=== PATIENT | female | born 1940 | race Caucasian/White ===

== ENCOUNTER 2017-10-28 14:37 | Emergency (ER) | payer OTHER ==
[~2017-10-28] VITALS: Ht 162.6 cm; Wt 103.2 kg
[~2017-10-28 14:37] MED LIST: ASPIR 8181 M1 PO; ASPIRIN EC325 MG PO; BENICAR HCT 201 EACH PO; BENICAR40 MG PO; BYSTOLIC10 MG PO; BYSTOLIC5 MG PO; CELECOXIB200 MG PO; Ecotrin PO; FERROUS SULFAT325 MG PO; Feosol PO; GLUCOPHAGE500 MG PO; HYDROCODON-ACE1 EAC7 PO; ICAPS LUTEIN1 TABLET PO; ICaps Multivitamin F PO; INVOKANA100 MG PO; LEVOTHYROXINE137 MCG PO; Levothroid,Synthroid PO; PAXIL10 MG PO; PAXIL20 MG PO; SENNA-TIME S T1 EACH PO; VITAMIN D2000 UNIT PO; VITAMIN E400 UNIT PO; Vicodin,Lortab 5/500 PO; Vitamin-E PO; WELCHOL625 MG PO
[2017-10-28 15:11] LABS: HEMATOCRIT 33.2 % (36.0-46.0); HEMOGLOBIN 9.8 G/DL (11.9-15.5); MCH 23.7 PG (29.0-34.0); MCHC 29.5 G/DL (30.0-36.0); MCV 80.4 FL (83-99); PLATELET COUNT 311 K/uL (156-360); RBC DIS.WIDTH-CV 19.3 % (11.8-14.6); RBC DIS.WIDTH-SD 56.1 % (39-53); RED BLOOD COUNT 4.13 M/uL (3.80-5.20); WHITE BLOOD COUNT 9.3 K/uL (4.1-10.2)
[2017-10-28 15:22] LABS: CHLORIDE 106 mEq/L (99-109); POTASSIUM 3.9 mEq/L (3.7-5.4); SODIUM 139 mEq/L (136-147)
[2017-10-28 15:25] LABS: GLUCOSE 138 mg/dL (70-99); TOTAL PROTEIN 7.4 g/dL (6.4-8.3)
[2017-10-28 15:26] LABS: TOTAL BILIRUBIN 0.4 mg/dL (0.0-1.0)
[2017-10-28 15:28] LABS: ALKALINE PHOSPHATASE 81 IU/L (3-129); CREATININE 1.1 mg/dL (0.6-1.3); GFR ESTIMATE (CALCULATED) 51 mL/min/
[2017-10-28 15:29] LABS: UREA NITROGEN (BUN) 15 mg/dL (9-23)
[2017-10-28 15:30] LABS: AST (GOT) 31 IU/L (2-34)
[2017-10-28 15:31] LABS: ALT (GPT) 30 IU/L (3-49)
[2017-10-28 17:17] LABS: LIPASE 25 U/L (1.0-51.0)
[2017-10-28 17:36] LABS: APPEARANCE CLOUDY ((CLEAR)); BILIRUBIN NEGATIVE; BLOOD NEGATIVE; COLOR YELLOW ((YELLOW)); GLUCOSE (STRIP) >=500; KETONES NEGATIVE; LEUKOCYTES TRACE; NITRITE NEGATIVE; PROTEIN (STRIP) NEGATIVE; SPECIFIC GRAVITY 1.009 (1.000-1.030); UROBILINOGEN 0.2 MG/DL (0.2-1.0)
[2017-10-28 17:44] LABS: BACTERIA RARE /HPF; EPITHELIAL CELLS 1+ /HPF; MUCUS TRACE /LPF; RED BLOOD CELLS 0-5 /HPF (0-5); UCUL ADDED? NO; WHITE BLOOD CELLS 0-5 /HPF (0-5)
[2017-10-28 20:39] VITALS: BP 143/68
== END 2017-10-28 20:40 | disposition home or self-care (01) ==
LOC: EME 14:37
DX: R10.9 Unspecified abdominal pain (principal); Z98.890 Other specified postprocedural states; K21.9 Gastro-esophageal reflux disease without esophagitis; I10 Essential (primary) hypertension; E11.9 Type 2 diabetes mellitus without complications; F41.9 Anxiety disorder, unspecified; Z85.828 Personal history of other malignant neoplasm of skin; Z79.84 Long term (current) use of oral hypoglycemic drugs; Z90.710 Acquired absence of both cervix and uterus; Z88.0 Allergy status to penicillin; Z88.1 Allergy status to other antibiotic agents; Z88.8 Allergy status to other drugs, medicaments and biological substances
CPT/HCPCS: 74177; 80053; 81003; 83605; 83690; 85027; 87040; 99281; 99285; J7030

== ENCOUNTER 2017-11-22 22:26 | Inpatient (IN) | payer OTHER ==
[~2017-11-22] VITALS: Ht 165.1 cm; Wt 93.9 kg
[~2017-11-22 22:26] MED LIST changes: +DIOVAN80 MG PO; +FEOSOL325 MG PO; +LO-DOSE ASPIRIN81 M1 PO; +SYNTHROID125 MCG PO
[2017-11-23 06:09] VITALS: BP 129/56
[2017-11-23 07:45] LABS: HEMATOCRIT 32.9 % (36.0-46.0); HEMOGLOBIN 9.4 G/DL (11.9-15.5); MCV 80.6 FL (83-99)
[2017-11-23 08:08] LABS: CHLORIDE 104 MEQ/L (99-109); GFR ESTIMATE (CALCULATED) 57 mL/min/; GLUCOSE 225 mg/dL (70-99); POTASSIUM 4.1 MEQ/L (3.7-5.4); SODIUM 137 MEQ/L (136-147); UREA NITROGEN (BUN) 15 mg/dL (9-23)
[2017-11-23 14:48] VITALS: BP 114/58
[2017-11-23 14:49] VITALS: BP 114/58
[2017-11-23 20:23] VITALS: BP 116/57
[2017-11-24] VITALS (9 sets, daily range): BP systolic 88–112; BP diastolic 39–58
[2017-11-24 04:51] LABS: HEMATOCRIT 30.6 % (36.0-46.0); HEMOGLOBIN 8.6 G/DL (11.9-15.5); MCH 23.2 PG (29.0-34.0); MCHC 28.1 G/DL (30.0-36.0); MCV 82.5 FL (83-99); PLATELET COUNT 308 K/uL (156-360); RBC DIS.WIDTH-CV 17.2 % (11.8-14.6); RED BLOOD COUNT 3.71 M/uL (3.80-5.20)
[2017-11-24 05:33] LABS: CHLORIDE 105 MEQ/L (99-109); CREATININE 1.1 MG/DL (0.6-1.3); GFR ESTIMATE (CALCULATED) 51 mL/min/; GLUCOSE 187 mg/dL (70-99); MAGNESIUM 1.7 mg/dl (1.3-2.7); PHOSPHORUS 3.1 mg/dL (2.5-4.9); SODIUM 136 MEQ/L (136-147); UREA NITROGEN (BUN) 16 mg/dL (9-23)
[2017-11-25 00:38] VITALS: BP 140/63
[2017-11-25 06:20] LABS: HEMATOCRIT 31.9 % (36.0-46.0); HEMOGLOBIN 9.2 G/DL (11.9-15.5); MCH 23.9 PG (29.0-34.0); MCHC 28.8 G/DL (30.0-36.0); MCV 82.9 FL (83-99); PLATELET COUNT 252 K/uL (156-360); RBC DIS.WIDTH-CV 17.1 % (11.8-14.6); RBC DIS.WIDTH-SD 51.1 % (39-53); RED BLOOD COUNT 3.85 M/uL (3.80-5.20); WHITE BLOOD COUNT 14.2 K/uL (4.1-10.2)
[2017-11-25 06:48] LABS: CHLORIDE 102 MEQ/L (99-109); CREATININE 1.1 MG/DL (0.6-1.3); GFR ESTIMATE (CALCULATED) 51 mL/min/; GLUCOSE 163 mg/dL (70-99); MAGNESIUM 1.7 mg/dl (1.3-2.7); PHOSPHORUS 2.7 mg/dL (2.5-4.9); POTASSIUM 4.4 MEQ/L (3.7-5.4); SODIUM 135 MEQ/L (136-147); UREA NITROGEN (BUN) 19 mg/dL (9-23)
[2017-11-25 07:30] VITALS: BP 142/67
[2017-11-25 15:30] VITALS: BP 126/60
[2017-11-25 21:26] VITALS: BP 101/56
[2017-11-25 23:37] VITALS: BP 97/56
[2017-11-26] VITALS (14 sets, daily range): BP systolic 99–148; BP diastolic 51–91
[2017-11-26 06:32] LABS: HEMATOCRIT 27.9 % (36.0-46.0); HEMOGLOBIN 7.9 G/DL (11.9-15.5); MCH 23.4 PG (29.0-34.0); MCHC 28.3 G/DL (30.0-36.0); MCV 82.8 FL (83-99); PLATELET COUNT 242 K/uL (156-360); RBC DIS.WIDTH-CV 17.2 % (11.8-14.6); RBC DIS.WIDTH-SD 50.8 % (39-53); RED BLOOD COUNT 3.37 M/uL (3.80-5.20); WHITE BLOOD COUNT 11.8 K/uL (4.1-10.2)
[2017-11-26 06:59] LABS: CHLORIDE 101 MEQ/L (99-109); CREATININE 1.3 MG/DL (0.6-1.3); GFR ESTIMATE (CALCULATED) 42 mL/min/; GLUCOSE 136 mg/dL (70-99); MAGNESIUM 1.7 mg/dl (1.3-2.7); PHOSPHORUS 2.7 mg/dL (2.5-4.9); POTASSIUM 4.1 MEQ/L (3.7-5.4); SODIUM 134 MEQ/L (136-147); UREA NITROGEN (BUN) 22 mg/dL (9-23)
[2017-11-26 15:32] LABS: HEMATOCRIT 30.2 % (36.0-46.0); MCV 82.3 FL (83-99)
[2017-11-26 21:23] LABS: HEMATOCRIT 33.6 % (36.0-46.0); HEMOGLOBIN 10.1 G/DL (11.9-15.5); MCH 24.6 PG (29.0-34.0); MCHC 30.1 G/DL (30.0-36.0); MCV 81.8 FL (83-99); NRBC (%) 0.2 /100 WBC (0-0); PLATELET COUNT 231 K/uL (156-360); RBC DIS.WIDTH-CV 17.3 % (11.8-14.6); RBC DIS.WIDTH-SD 51.4 % (39-53); WHITE BLOOD COUNT 12.4 K/uL (4.1-10.2)
[2017-11-26 21:28] LABS: RED BLOOD COUNT 4.11 M/uL (3.80-5.20)
[2017-11-26 21:43] LABS: CHLORIDE 102 MEQ/L (99-109); CREATININE 1.4 MG/DL (0.6-1.3); GFR ESTIMATE (CALCULATED) 39 mL/min/; GLUCOSE 143 mg/dL (70-99); POTASSIUM 4.3 MEQ/L (3.7-5.4); SODIUM 135 MEQ/L (136-147); UREA NITROGEN (BUN) 27 mg/dL (9-23)
[2017-11-26 22:19] LABS: HEMATOCRIT 34.4 % (36.0-46.0); HEMOGLOBIN 10.2 G/DL (11.9-15.5); MCV 81.5 FL (83-99)
[2017-11-27 03:27] VITALS: BP 139/76
[2017-11-27 05:53] LABS: HEMATOCRIT 34.1 % (36.0-46.0); HEMOGLOBIN 10.4 G/DL (11.9-15.5); MCH 24.5 PG (29.0-34.0); MCHC 30.5 G/DL (30.0-36.0); MCV 80.4 FL (83-99); PLATELET COUNT 252 K/uL (156-360); RBC DIS.WIDTH-CV 17.2 % (11.8-14.6); RBC DIS.WIDTH-SD 50.4 % (39-53); RED BLOOD COUNT 4.24 M/uL (3.80-5.20); WHITE BLOOD COUNT 12.8 K/uL (4.1-10.2)
[2017-11-27 06:25] LABS: CHLORIDE 100 MEQ/L (99-109); CREATININE 1.3 MG/DL (0.6-1.3); GFR ESTIMATE (CALCULATED) 42 mL/min/; GLUCOSE 156 mg/dL (70-99); MAGNESIUM 1.7 mg/dl (1.3-2.7); PHOSPHORUS 2.5 mg/dL (2.5-4.9); POTASSIUM 3.7 MEQ/L (3.7-5.4); SODIUM 134 MEQ/L (136-147); UREA NITROGEN (BUN) 27 mg/dL (9-23)
[2017-11-27 07:30] VITALS: BP 138/69
[2017-11-27 16:23] VITALS: BP 140/77
[2017-11-27 19:27] VITALS: BP 155/67
[2017-11-27 23:04] VITALS: BP 149/68
[2017-11-28 05:22] LABS: HEMATOCRIT 37.6 % (36.0-46.0); HEMOGLOBIN 11.2 G/DL (11.9-15.5); MCH 23.8 PG (29.0-34.0); MCHC 29.8 G/DL (30.0-36.0); MCV 79.8 FL (83-99); PLATELET COUNT 257 K/uL (156-360); RBC DIS.WIDTH-CV 17.1 % (11.8-14.6); RBC DIS.WIDTH-SD 49.7 % (39-53); RED BLOOD COUNT 4.71 M/uL (3.80-5.20); WHITE BLOOD COUNT 13.7 K/uL (4.1-10.2)
[2017-11-28 05:55] LABS: CHLORIDE 103 MEQ/L (99-109); CREATININE 1.1 MG/DL (0.6-1.3); GFR ESTIMATE (CALCULATED) 51 mL/min/; GLUCOSE 161 mg/dL (70-99); MAGNESIUM 1.6 mg/dl (1.3-2.7); PHOSPHORUS 2.3 mg/dL (2.5-4.9); POTASSIUM 3.9 MEQ/L (3.7-5.4); SODIUM 137 MEQ/L (136-147); UREA NITROGEN (BUN) 21 mg/dL (9-23)
[2017-11-28 07:12] VITALS: BP 132/66
[2017-11-28 11:32] VITALS: BP 102/55
[2017-11-28 16:16] VITALS: BP 97/56
[2017-11-28 23:02] VITALS: BP 108/50
[2017-11-29] VITALS (9 sets, daily range): BP systolic 87–134; BP diastolic 52–66
[2017-11-29 06:22] LABS: PLATELET COUNT 288 K/uL (156-360)
[2017-11-29 07:10] LABS: HEMATOCRIT 44.1 % (36.0-46.0); MCH 24.2 PG (29.0-34.0); MCHC 30.8 G/DL (30.0-36.0); MCV 78.3 FL (83-99); NRBC (%) 0.3 /100 WBC (0-0); RBC DIS.WIDTH-CV 17.7 % (11.8-14.6); RBC DIS.WIDTH-SD 49.3 % (39-53); RED BLOOD COUNT 5.63 M/uL (3.80-5.20); WHITE BLOOD COUNT 5.8 K/uL (4.1-10.2)
[2017-11-29 07:14] LABS: HEMOGLOBIN 13.6 G/DL (11.9-15.5)
[2017-11-29 07:48] LABS: CHLORIDE 102 MEQ/L (99-109); CREATININE 2.5 MG/DL (0.6-1.3); GFR ESTIMATE (CALCULATED) 20 mL/min/; GLUCOSE 152 mg/dL (70-99); MAGNESIUM 1.5 mg/dl (1.3-2.7); PHOSPHORUS 4.9 mg/dL (2.5-4.9); POTASSIUM 4.4 MEQ/L (3.7-5.4); SODIUM 134 MEQ/L (136-147); UREA NITROGEN (BUN) 35 mg/dL (9-23)
[2017-11-29 16:53] LABS: COMMENTS - BLOOD GASES A+C+; DEVICE VENT; FI02 70 %; MECHANICAL RATE 12 resp/min; MODE A/C; PEEP 5 CM/H20; SITE RR; TIDAL VOLUME 500 ML; TOTAL RESP RATE 12 resp/min
[2017-11-29 16:54] LABS: BASE EXCESS -7.1 mEq/L (-3 to +3); BICARBONATE 19.3 mEq/L (22-26); METHEMOGLOBIN 0.9 % (0-1.5); PCO2 41 mm Hg (35-45); PO2 71 mm Hg (80-100); pH 7.28 (7.35-7.45)
[2017-11-29 17:42] LABS: HEMATOCRIT 43.4 % (36.0-46.0); HEMOGLOBIN 12.9 G/DL (11.9-15.5); MCH 23.9 PG (29.0-34.0); MCHC 29.7 G/DL (30.0-36.0); MCV 80.5 FL (83-99); RBC DIS.WIDTH-CV 18.3 % (11.8-14.6); RBC DIS.WIDTH-SD 52.5 % (39-53); RED BLOOD COUNT 5.39 M/uL (3.80-5.20); WHITE BLOOD COUNT 5.6 K/uL (4.1-10.2)
[2017-11-29 18:03] LABS: CHLORIDE 104 MEQ/L (99-109); CREATININE 2.3 MG/DL (0.6-1.3); GFR ESTIMATE (CALCULATED) 22 mL/min/; GLUCOSE 106 mg/dL (70-99); MAGNESIUM 1.3 mg/dl (1.3-2.7); POTASSIUM 4.6 MEQ/L (3.7-5.4); SODIUM 138 MEQ/L (136-147); UREA NITROGEN (BUN) 37 mg/dL (9-23)
[2017-11-29 20:06] LABS: ABS NEUTROPHIL COUNT 3.3; ANISOCYTOSIS 1+; ATYPICAL LYMPHOCYTE 1.9 %; BAND NEUTROPHILS 53.7 % (0-8.0); BURR CELLS 1+; EOSINOPHIL ABS CT 0.2; EOSINOPHILS 2.8 % (0-5.0); METAMYELOCYTES 4.6 %; MICROCYTOSIS 1+; MONOCYTES 20.4 % (0-9.0); PLAT.SUFFICIENCY ADEQUATE; PLATELET COUNT 231 K/uL (156-360); POIKILOCYTOSIS 3+; POLYCHROMASIA 1+; SEG.NEUTROPHILS 4.6 % (46.0-76.0)
[2017-11-29 21:27] LABS: COMMENTS - BLOOD GASES C+; DEVICE VENT; FI02 70 %; MODE ACVC; SITE RR
[2017-11-29 21:28] LABS: CARBOXY HGB 1.4 % (0-5); MECHANICAL RATE 20 resp/min; O2 SATURATION (CALCULATED) 96.7 % (95-99); PCO2 35 mm Hg (35-45); PEEP 5 CM/H20; PO2 76 mm Hg (80-100); TIDAL VOLUME 500 ML; TOTAL RESP RATE 20 resp/min
[2017-11-29 21:29] LABS: BASE EXCESS -2.6 mEq/L (-3 to +3); BICARBONATE 21.7 mEq/L (22-26)
[2017-11-30] VITALS (26 sets, daily range): BP systolic 83–131; BP diastolic 36–83
[2017-11-30 05:23] LABS: HEMATOCRIT 31.6 % (36.0-46.0); MCH 24.3 PG (29.0-34.0); MCV 78.4 FL (83-99); NRBC (%) 0.3 /100 WBC (0-0); PLATELET COUNT 197 K/uL (156-360); RBC DIS.WIDTH-CV 17.8 % (11.8-14.6); RBC DIS.WIDTH-SD 50.7 % (39-53); WHITE BLOOD COUNT 7.5 K/uL (4.1-10.2)
[2017-11-30 05:25] LABS: HEMOGLOBIN 9.8 G/DL (11.9-15.5); RED BLOOD COUNT 4.03 M/uL (3.80-5.20)
[2017-11-30 05:32] LABS: ALBUMIN 2.7 g/dL (3.2-4.8); CHLORIDE 99 mEq/L (99-109); SODIUM 138 mEq/L (136-147)
[2017-11-30 05:33] LABS: MAGNESIUM 1.3 mg/dL (1.3-2.7)
[2017-11-30 05:35] LABS: TOTAL PROTEIN 4.1 g/dL (6.4-8.3)
[2017-11-30 05:36] LABS: TOTAL BILIRUBIN 2.5 mg/dL (0.0-1.0)
[2017-11-30 05:36] LABS: CARBOXY HGB 1.5 % (0-5); O2 SATURATION (CALCULATED) 94.1 % (95-99); PCO2 38 mm Hg (35-45); PO2 58 mm Hg (80-100); pH 7.49 (7.35-7.45)
[2017-11-30 05:37] LABS: BASE EXCESS 5.3 mEq/L (-3 to +3); BICARBONATE 29 mEq/L (22-26); COMMENTS - BLOOD GASES C+; DEVICE VENT; FI02 60 %; MECHANICAL RATE 20 resp/min; METHEMOGLOBIN 0.7 % (0-1.5); MODE ACVC; SITE LR; TIDAL VOLUME 500 ML; TOTAL RESP RATE 20 resp/min
[2017-11-30 05:38] LABS: ALKALINE PHOSPHATASE 37 IU/L (3-129); CREATININE 2.1 mg/dL (0.6-1.3); GFR ESTIMATE (CALCULATED) 24 mL/min/; GLUCOSE 193 mg/dL (70-99)
[2017-11-30 05:38] LABS: PEEP 5 CM/H20
[2017-11-30 05:39] LABS: UREA NITROGEN (BUN) 42 mg/dL (9-23)
[2017-11-30 05:40] LABS: AST (GOT) 20 IU/L (2-34)
[2017-11-30 05:41] LABS: ALT (GPT) 19 IU/L (3-49)
[2017-11-30 06:36] LABS: ABS NEUTROPHIL COUNT 6.6; ANISOCYTOSIS 1+; ATYPICAL LYMPHOCYTE 0.9 %; BASOPHILS 0.9 %; BURR CELLS 2+; EOSINOPHIL ABS CT 0; GIANT PLATELETS 1+; HEMATOLOGY COMMENT 1 SN; LYMPHOCYTES 2.7 % (15.0-45.0); METAMYELOCYTES 3.6 %; MYELOCYTES 0.9 %; OVALOCYTES 1+; PLATELET CLUMPS PRESENT - PLATELET COUNTS APPEARS DECREASED; POIKILOCYTOSIS 1+; TOX.VACUOLIZATION 2+; TOXIC GRANULATION 2+
[2017-11-30 06:45] LABS: BAND NEUTROPHILS 14.4 % (0-8.0); MONOCYTES 3.6 % (0-9.0)
[2017-11-30 09:40] LABS: HEMATOCRIT 31.1 % (36.0-46.0); HEMOGLOBIN 9.6 G/DL (11.9-15.5); MCH 23.9 PG (29.0-34.0); MCHC 30.9 G/DL (30.0-36.0); MCV 77.4 FL (83-99); NRBC (%) 0.3 /100 WBC (0-0); PLATELET COUNT 205 K/uL (156-360); RBC DIS.WIDTH-CV 17.4 % (11.8-14.6); RBC DIS.WIDTH-SD 49.3 % (39-53); RED BLOOD COUNT 4.02 M/uL (3.80-5.20); WHITE BLOOD COUNT 9.4 K/uL (4.1-10.2)
[2017-12-01] VITALS (31 sets, daily range): BP systolic 73–146; BP diastolic 38–74
[2017-12-01 08:27] LABS: INTER. NORMALIZED RATIO 1.2
[2017-12-01 08:30] LABS: PTT 32.6 SEC (25-37)
[2017-12-01 08:41] LABS: HEMATOCRIT 31.8 % (36.0-46.0); HEMOGLOBIN 10.1 G/DL (11.9-15.5); MCH 24.4 PG (29.0-34.0); MCHC 31.8 G/DL (30.0-36.0); MCV 76.8 FL (83-99); NRBC (%) 0.1 /100 WBC (0-0); RBC DIS.WIDTH-CV 17.6 % (11.8-14.6); RBC DIS.WIDTH-SD 49.4 % (39-53); RED BLOOD COUNT 4.14 M/uL (3.80-5.20); WHITE BLOOD COUNT 14.5 K/uL (4.1-10.2)
[2017-12-01 08:51] LABS: CREATININE 1.7 MG/DL (0.6-1.3); GFR ESTIMATE (CALCULATED) 31 mL/min/; GLUCOSE 185 mg/dL (70-99); MAGNESIUM 1.9 mg/dl (1.3-2.7); SODIUM 138 MEQ/L (136-147); UREA NITROGEN (BUN) 39 mg/dL (9-23)
[2017-12-01 08:52] LABS: CHLORIDE 90 MEQ/L (99-109); PHOSPHORUS 1.5 mg/dL (2.5-4.9); POTASSIUM 2.9 MEQ/L (3.7-5.4)
[2017-12-01 09:09] LABS: BASOPHIL (%) 0.5 % (0-1); BASOPHIL COUNT 0.1 K/uL (0-0.1); EOSINOPHIL (%) 2.2 % (0-5); EOSINOPHIL COUNT 0.3 K/uL (0-0.3); IMMATURE GRANULOCYTE (%) 2.5 % (0.0-0.7); LYMPHOCYTE (%) 9.6 % (15-42); LYMPHOCYTE COUNT 1.4 K/uL (1.0-2.8); MONOCYTE (%) 5.1 % (3-12); MONOCYTE COUNT 0.7 K/uL (0-0.8); NEUTROPHIL (%) 80.1 % (45-76); NEUTROPHIL COUNT 11.6 K/uL (1.8-6.4); PLATELET CLUMPS PRESENT - PLATELET COUNT APPEARS ADQ.
[2017-12-01 09:10] LABS: PLATELET COUNT ND K/uL (156-360)
[2017-12-01 17:28] LABS: HEMATOCRIT 29.6 % (36.0-46.0); HEMOGLOBIN 9.6 G/DL (11.9-15.5); MCH 24.9 PG (29.0-34.0); MCHC 32.4 G/DL (30.0-36.0); MCV 76.7 FL (83-99); NRBC (%) 0.3 /100 WBC (0-0); RBC DIS.WIDTH-CV 17.9 % (11.8-14.6); RBC DIS.WIDTH-SD 49.5 % (39-53); RED BLOOD COUNT 3.86 M/uL (3.80-5.20); WHITE BLOOD COUNT 11.9 K/uL (4.1-10.2)
[2017-12-01 17:30] LABS: CHLORIDE 87 MEQ/L (99-109); CREATININE 1.5 MG/DL (0.6-1.3); GFR ESTIMATE (CALCULATED) 36 mL/min/; GLUCOSE 168 mg/dL (70-99); SODIUM 137 MEQ/L (136-147); UREA NITROGEN (BUN) 37 mg/dL (9-23)
[2017-12-01 17:38] LABS: POTASSIUM 3.7 MEQ/L (3.7-5.4)
[2017-12-01 17:55] LABS: ANISOCYTOSIS 1+; ATYPICAL LYMPHOCYTE 0.9 %; BASOPHILS 0.9 %; EOSINOPHIL ABS CT 0.1; EOSINOPHILS 0.9 % (0-5.0); HYPOCHROMASIA 1+; LYMPHOCYTES 15.8 % (15.0-45.0); METAMYELOCYTES 0.9 %; MICROCYTOSIS 1+; MONOCYTES 4.6 % (0-9.0); PLAT.SUFFICIENCY ADEQUATE; PLATELET COUNT 199 K/uL (156-360); POIKILOCYTOSIS 2+; POLYCHROMASIA 1+; TARGET CELLS 2+; TOX.VACUOLIZATION 1+
[2017-12-01 17:56] LABS: BAND NEUTROPHILS 37.1 % (0-8.0); SEG.NEUTROPHILS 38.9 % (46.0-76.0)
[2017-12-02] VITALS (23 sets, daily range): BP systolic 69–156; BP diastolic 36–67
[2017-12-02 05:50] LABS: HEMATOCRIT 32.6 % (36.0-46.0); HEMOGLOBIN 10.1 G/DL (11.9-15.5); MCH 24.3 PG (29.0-34.0); MCV 78.6 FL (83-99); PLATELET COUNT 183 K/uL (156-360); RBC DIS.WIDTH-CV 17.9 % (11.8-14.6); RBC DIS.WIDTH-SD 50.8 % (39-53); RED BLOOD COUNT 4.15 M/uL (3.80-5.20); WHITE BLOOD COUNT 14.9 K/uL (4.1-10.2)
[2017-12-02 06:16] LABS: CHLORIDE 85 MEQ/L (99-109); CREATININE 1.6 MG/DL (0.6-1.3); GFR ESTIMATE (CALCULATED) 33 mL/min/; GLUCOSE 157 mg/dL (70-99); SODIUM 138 MEQ/L (136-147); UREA NITROGEN (BUN) 31 mg/dL (9-23)
[2017-12-02 06:17] LABS: POTASSIUM 2.6 MEQ/L (3.7-5.4)
[2017-12-02 07:04] LABS: BASOPHIL (%) 0.4 % (0-1); BASOPHIL COUNT 0.1 K/uL (0-0.1); EOSINOPHIL (%) 3.3 % (0-5); EOSINOPHIL COUNT 0.5 K/uL (0-0.3); HEMATOLOGY COMMENT 1 SMEAR COMPATIBLE; IMMATURE GRANULOCYTE (%) 3.9 % (0.0-0.7); LYMPHOCYTE (%) 9.9 % (15-42); LYMPHOCYTE COUNT 1.5 K/uL (1.0-2.8); MONOCYTE (%) 6.8 % (3-12); NEUTROPHIL (%) 75.7 % (45-76); NEUTROPHIL COUNT 11.3 K/uL (1.8-6.4)
[2017-12-02 10:55] LABS: MAGNESIUM 2.2 mg/dl (1.3-2.7); PHOSPHORUS 2.7 mg/dL (2.5-4.9); PREALBUMIN < 3.0 mg/dL (10-40)
[2017-12-02 13:20] LABS: MAGNESIUM 2.3 mg/dl (1.3-2.7)
[2017-12-02 13:22] LABS: PHOSPHORUS 4.6 mg/dL (2.5-4.9); PREALBUMIN < 3.0 mg/dL (10-40)
[2017-12-02 14:51] LABS: CHLORIDE 86 MEQ/L (99-109); CREATININE 1.4 MG/DL (0.6-1.3); GFR ESTIMATE (CALCULATED) 39 mL/min/; GLUCOSE 165 mg/dL (70-99); MAGNESIUM 2.2 mg/dl (1.3-2.7); PHOSPHORUS 5.6 mg/dL (2.5-4.9); POTASSIUM 2.8 MEQ/L (3.7-5.4); SODIUM 140 MEQ/L (136-147); UREA NITROGEN (BUN) 26 mg/dL (9-23)
[2017-12-02 14:52] LABS: CARBON DIOXIDE (BICARBONATE) > 40.0 MEQ/L (20-31)
[2017-12-02 22:58] LABS: CHLORIDE 87 MEQ/L (99-109); CREATININE 1.3 MG/DL (0.6-1.3); GFR ESTIMATE (CALCULATED) 42 mL/min/; GLUCOSE 157 mg/dL (70-99); POTASSIUM 3.3 MEQ/L (3.7-5.4); SODIUM 136 MEQ/L (136-147); UREA NITROGEN (BUN) 24 mg/dL (9-23)
[2017-12-03] VITALS (23 sets, daily range): BP systolic 93–127; BP diastolic 43–65
[2017-12-03 05:22] LABS: HEMATOCRIT 32.2 % (36.0-46.0); HEMOGLOBIN 9.9 G/DL (11.9-15.5); MCH 24.4 PG (29.0-34.0); MCHC 30.7 G/DL (30.0-36.0); MCV 79.5 FL (83-99); PLATELET COUNT 174 K/uL (156-360); RBC DIS.WIDTH-CV 18.4 % (11.8-14.6); RBC DIS.WIDTH-SD 53.1 % (39-53); RED BLOOD COUNT 4.05 M/uL (3.80-5.20)
[2017-12-03 06:03] LABS: CHLORIDE 91 MEQ/L (99-109); CREATININE 1.2 MG/DL (0.6-1.3); GFR ESTIMATE (CALCULATED) 46 mL/min/; GLUCOSE 195 mg/dL (70-99); POTASSIUM 3.6 MEQ/L (3.7-5.4); SODIUM 138 MEQ/L (136-147); TRIGLYCERIDES 544 MG/DL (Normal: <150); UREA NITROGEN (BUN) 25 mg/dL (9-23)
[2017-12-03 06:44] LABS: ABS NEUTROPHIL COUNT 17.4; ANISOCYTOSIS 1+; BAND NEUTROPHILS 6.7 % (0-8.0); EOSINOPHIL ABS CT 0.9; EOSINOPHILS 4.8 % (0-5.0); LYMPHOCYTES 3.8 % (15.0-45.0); MACROCYTES 1+; PLAT.SUFFICIENCY ADEQUATE; POIKILOCYTOSIS 1+; SEG.NEUTROPHILS 84.7 % (46.0-76.0); SMUDGE CELLS 67.6
[2017-12-04] VITALS (22 sets, daily range): BP systolic 90–163; BP diastolic 47–82
[2017-12-04 05:18] LABS: HEMATOCRIT 33.3 % (36.0-46.0); HEMOGLOBIN 9.9 G/DL (11.9-15.5); MCH 24.2 PG (29.0-34.0); MCHC 29.7 G/DL (30.0-36.0); MCV 81.4 FL (83-99); PLATELET COUNT 183 K/uL (156-360); RBC DIS.WIDTH-CV 18.9 % (11.8-14.6); RBC DIS.WIDTH-SD 56.4 % (39-53); RED BLOOD COUNT 4.09 M/uL (3.80-5.20); WHITE BLOOD COUNT 18.2 K/uL (4.1-10.2)
[2017-12-04 05:38] LABS: COMMENTS - BLOOD GASES A+C+; SITE RR
[2017-12-04 05:39] LABS: DEVICE VENT; FI02 45 %; MECHANICAL RATE 14 resp/min; MODE AC; PCO2 45 mm Hg (35-45); PEEP 8 CM/H20; PO2 74 mm Hg (80-100); TIDAL VOLUME 440 ML; TOTAL RESP RATE 18 resp/min; pH 7.51 (7.35-7.45)
[2017-12-04 05:40] LABS: BASE EXCESS 11.6 mEq/L (-3 to +3); BICARBONATE 35.9 mEq/L (22-26); O2 SATURATION (CALCULATED) 97.2 % (95-99)
[2017-12-04 05:54] LABS: CHLORIDE 96 MEQ/L (99-109); CREATININE 1.1 MG/DL (0.6-1.3); GFR ESTIMATE (CALCULATED) 51 mL/min/; GLUCOSE 218 mg/dL (70-99); MAGNESIUM 2.1 mg/dl (1.3-2.7); PHOSPHORUS 2.6 mg/dL (2.5-4.9); POTASSIUM 4.1 MEQ/L (3.7-5.4); SODIUM 138 MEQ/L (136-147); UREA NITROGEN (BUN) 30 mg/dL (9-23)
[2017-12-04 06:28] LABS: BAND NEUTROPHILS 1.7 % (0-8.0); BASOPHILS 0.9 %; EOSINOPHIL ABS CT 0; HYPOCHROMASIA 1+; LYMPHOCYTES 3.5 % (15.0-45.0); METAMYELOCYTES 0.9 %; OVALOCYTES 1+; PLAT.SUFFICIENCY ADEQUATE; POLYCHROMASIA 1+; TEAR DROP CELLS 1+
[2017-12-04 23:06] LABS: COMMENTS - BLOOD GASES C+; DEVICE VENT; FI02 50 %; INSPIRATION TIME 0.85 seconds; MECHANICAL RATE 16 resp/min; MODE ACVC+; PEEP 8 CM/H20; SITE RR; TIDAL VOLUME 450 ML; TOTAL RESP RATE 16 resp/min
[2017-12-04 23:07] LABS: BASE EXCESS 7.3 mEq/L (-3 to +3); CARBOXY HGB 1.5 % (0-5); METHEMOGLOBIN 0.8 % (0-1.5); O2 SATURATION (CALCULATED) 97.6 % (95-99); PCO2 45 mm Hg (35-45); PO2 83 mm Hg (80-100); pH 7.46 (7.35-7.45)
[2017-12-05] VITALS (22 sets, daily range): BP systolic 112–157; BP diastolic 58–81
[2017-12-05 06:02] LABS: HEMATOCRIT 34.9 % (36.0-46.0); HEMOGLOBIN 10.1 G/DL (11.9-15.5); MCH 23.8 PG (29.0-34.0); MCHC 28.9 G/DL (30.0-36.0); MCV 82.1 FL (83-99); RBC DIS.WIDTH-SD 56.3 % (39-53); RED BLOOD COUNT 4.25 M/uL (3.80-5.20); WHITE BLOOD COUNT 19.7 K/uL (4.1-10.2)
[2017-12-05 06:10] LABS: PLATELET COUNT 279 K/uL (156-360)
[2017-12-05 06:35] LABS: ALBUMIN 2.1 G/DL (3.2-4.8); ALKALINE PHOSPHATASE 82 IU/L (3-129); ALT (GPT) 9 IU/L (3-49); AST (GOT) 16 IU/L (2-34); CHLORIDE 101 MEQ/L (99-109); DIRECT BILIRUBIN 1.1 mg/dL (0.0-0.3); GFR ESTIMATE (CALCULATED) 57 mL/min/; GLUCOSE 228 mg/dL (70-99); MAGNESIUM 1.9 mg/dl (1.3-2.7); PHOSPHORUS 2.3 mg/dL (2.5-4.9); POTASSIUM 4.7 MEQ/L (3.7-5.4); PREALBUMIN 7.7 mg/dL (10-40); SODIUM 138 MEQ/L (136-147); TOTAL BILIRUBIN 1.7 MG/DL (0.0-1.0); TRIGLYCERIDES 338 MG/DL (Normal: <150); UREA NITROGEN (BUN) 33 mg/dL (9-23)
[2017-12-05 07:15] LABS: ABS NEUTROPHIL COUNT 17.3; ANISOCYTOSIS 1+; BAND NEUTROPHILS 0.9 % (0-8.0); BASOPHILS 0.9 %; EOSINOPHIL ABS CT 0.6; EOSINOPHILS 2.8 % (0-5.0); HYPOCHROMASIA 1+; LYMPHOCYTES 2.8 % (15.0-45.0); METAMYELOCYTES 0.9 %; MICROCYTOSIS 1+; MONOCYTES 0.9 % (0-9.0); MYELOCYTES 3.7 %; PLAT.SUFFICIENCY ADEQUATE; POLYCHROMASIA 2+; SEG.NEUTROPHILS 87.1 % (46.0-76.0); SMUDGE CELLS 14.8
[2017-12-06] VITALS (22 sets, daily range): BP systolic 92–174; BP diastolic 46–99
[2017-12-06 05:27] LABS: CHLORIDE 105 mEq/L (99-109); POTASSIUM 5.5 mEq/L (3.7-5.4); SODIUM 138 mEq/L (136-147)
[2017-12-06 05:29] LABS: GLUCOSE 212 mg/dL (70-99)
[2017-12-06 05:33] LABS: CREATININE 0.8 mg/dL (0.6-1.3); GFR ESTIMATE (CALCULATED) > 59 mL/min/; PHOSPHORUS 2.8 mg/dL (2.5-4.9)
[2017-12-06 05:34] LABS: UREA NITROGEN (BUN) 35 mg/dL (9-23)
[2017-12-06 06:32] LABS: HEMOGLOBIN 9.6 G/DL (11.9-15.5); MCH 24.3 PG (29.0-34.0); MCHC 29.1 G/DL (30.0-36.0); MCV 83.5 FL (83-99); PLATELET COUNT 308 K/uL (156-360); RBC DIS.WIDTH-SD 57.5 % (39-53); RED BLOOD COUNT 3.95 M/uL (3.80-5.20); WHITE BLOOD COUNT 17.7 K/uL (4.1-10.2)
[2017-12-06 07:07] LABS: ABS NEUTROPHIL COUNT 15.2; ANISOCYTOSIS 1+; EOSINOPHIL ABS CT 0.3; EOSINOPHILS 1.8 % (0-5.0); LYMPHOCYTES 5.4 % (15.0-45.0); MONOCYTES 6.3 % (0-9.0); MYELOCYTES 0.9 %; PLAT.SUFFICIENCY ADEQUATE; SEG.NEUTROPHILS 85.6 % (46.0-76.0)
[2017-12-06 11:29] LABS: 24 HR VOLUME 1200 MLS; URINE UREA NITROGEN 11700 MG/24 HR
[2017-12-06 15:55] LABS: TYPE OF FLUID PARACENTESIS
[2017-12-06 17:18] LABS: BODY FLUID GLUCOSE 10 MG/DL; BODY FLUID LDH 4517 IU/L; BODY FLUID PROTEIN < 3.0 G/DL
[2017-12-06 18:08] LABS: APPEARANCE HAZY-YELLOW; BODY FLUID RBC'S 26000 /MM^3 (0-100); BODY FLUID WBC'S 23625 /MM^3 (0-500)
[2017-12-06 18:48] LABS: BODY FLUID EOSINOPHILS 0 % (0-25); MONONUCLEAR WBC'S 10 %; POLYNUCLEAR WBC'S 90 % (0-25)
[2017-12-07] VITALS (21 sets, daily range): BP systolic 92–128; BP diastolic 49–75
[2017-12-07 06:15] LABS: CHLORIDE 105 MEQ/L (99-109); GFR ESTIMATE (CALCULATED) 57 mL/min/; GLUCOSE 173 mg/dL (70-99); MAGNESIUM 1.9 mg/dl (1.3-2.7); POTASSIUM 4.7 MEQ/L (3.7-5.4); SODIUM 138 MEQ/L (136-147); UREA NITROGEN (BUN) 39 mg/dL (9-23)
[2017-12-07 06:16] LABS: PHOSPHORUS 3.6 mg/dL (2.5-4.9)
[2017-12-08] VITALS (24 sets, daily range): BP systolic 87–128; BP diastolic 44–85
[2017-12-08 05:35] LABS: BASOPHIL (%) 0.4 % (0-1); BASOPHIL COUNT 0.1 K/uL (0-0.1); EOSINOPHIL (%) 1.8 % (0-5); EOSINOPHIL COUNT 0.3 K/uL (0-0.3); HEMATOCRIT 29.5 % (36.0-46.0); HEMOGLOBIN 8.5 G/DL (11.9-15.5); IMMATURE GRANULOCYTE (%) 4.4 % (0.0-0.7); LYMPHOCYTE (%) 9.2 % (15-42); LYMPHOCYTE COUNT 1.6 K/uL (1.0-2.8); MCHC 28.8 G/DL (30.0-36.0); MCV 83.3 FL (83-99); MONOCYTE COUNT 1.4 K/uL (0-0.8); NEUTROPHIL (%) 76.2 % (45-76); NEUTROPHIL COUNT 13.6 K/uL (1.8-6.4); RBC DIS.WIDTH-CV 19.8 % (11.8-14.6); RBC DIS.WIDTH-SD 58.4 % (39-53); RED BLOOD COUNT 3.54 M/uL (3.80-5.20); WHITE BLOOD COUNT 17.9 K/uL (4.1-10.2)
[2017-12-08 06:14] LABS: CHLORIDE 106 MEQ/L (99-109); GFR ESTIMATE (CALCULATED) 57 mL/min/; GLUCOSE 175 mg/dL (70-99); MAGNESIUM 2.1 mg/dl (1.3-2.7); PHOSPHORUS 4.1 mg/dL (2.5-4.9); SODIUM 138 MEQ/L (136-147); UREA NITROGEN (BUN) 43 mg/dL (9-23)
[2017-12-08 06:26] LABS: ALKALINE PHOSPHATASE 68 IU/L (3-129); ALT (GPT) 7 IU/L (3-49); AST (GOT) 16 IU/L (2-34); CHLORIDE 106 MEQ/L (99-109); GFR ESTIMATE (CALCULATED) 57 mL/min/; GLUCOSE 185 mg/dL (70-99); POTASSIUM 4.7 MEQ/L (3.7-5.4); SODIUM 137 MEQ/L (136-147); TOTAL PROTEIN 5.1 G/DL (6.4-8.3); UREA NITROGEN (BUN) 43 mg/dL (9-23)
[2017-12-08 06:27] LABS: TOTAL BILIRUBIN 1.1 MG/DL (0.0-1.0)
[2017-12-08 06:39] LABS: PLAT.SUFFICIENCY INCREASED
[2017-12-08 06:42] LABS: PLATELET COUNT 515 K/uL (156-360)
[2017-12-08 19:47] LABS: BODY FLUID PH 6.6 (())
[2017-12-09] VITALS (24 sets, daily range): BP systolic 94–178; BP diastolic 47–88
[2017-12-09 05:08] LABS: BASOPHIL (%) 0.5 % (0-1); BASOPHIL COUNT 0.1 K/uL (0-0.1); EOSINOPHIL (%) 1.6 % (0-5); EOSINOPHIL COUNT 0.3 K/uL (0-0.3); HEMATOCRIT 31.2 % (36.0-46.0); HEMOGLOBIN 8.8 G/DL (11.9-15.5); IMMATURE GRANULOCYTE (%) 3.5 % (0.0-0.7); LYMPHOCYTE (%) 9.7 % (15-42); LYMPHOCYTE COUNT 1.6 K/uL (1.0-2.8); MCH 23.7 PG (29.0-34.0); MCHC 28.2 G/DL (30.0-36.0); MCV 84.1 FL (83-99); MONOCYTE (%) 9.6 % (3-12); MONOCYTE COUNT 1.5 K/uL (0-0.8); NEUTROPHIL (%) 75.1 % (45-76); NEUTROPHIL COUNT 11.9 K/uL (1.8-6.4); PLATELET COUNT 546 K/uL (156-360); RBC DIS.WIDTH-CV 19.4 % (11.8-14.6); RBC DIS.WIDTH-SD 58.4 % (39-53); RED BLOOD COUNT 3.71 M/uL (3.80-5.20); WHITE BLOOD COUNT 15.9 K/uL (4.1-10.2)
[2017-12-09 05:33] LABS: CHLORIDE 111 MEQ/L (99-109); CREATININE 0.9 MG/DL (0.6-1.3); GFR ESTIMATE (CALCULATED) > 59 mL/min/; GLUCOSE 185 mg/dL (70-99); MAGNESIUM 2.3 mg/dl (1.3-2.7); PHOSPHORUS 3.7 mg/dL (2.5-4.9); POTASSIUM 4.8 MEQ/L (3.7-5.4); SODIUM 138 MEQ/L (136-147); UREA NITROGEN (BUN) 38 mg/dL (9-23)
[2017-12-09 20:30] LABS: COMMENTS - BLOOD GASES A+C+; DEVICE VENT; FI02 100 %; MECHANICAL RATE 14 resp/min; MODE ACVC; O2 SATURATION (CALCULATED) 99 % (95-99); PCO2 49 mm Hg (35-45); PEEP 6 CM/H20; PO2 145 mm Hg (80-100); SITE LR; TIDAL VOLUME 450 ML; TOTAL RESP RATE 14 resp/min; pH 7.28 (7.35-7.45)
[2017-12-09 20:31] LABS: BASE EXCESS -3.8 mEq/L (-3 to +3)
[2017-12-10] VITALS (24 sets, daily range): BP systolic 86–156; BP diastolic 44–90
[2017-12-10 05:16] LABS: BASOPHIL (%) 0.3 % (0-1); EOSINOPHIL (%) 1.4 % (0-5); EOSINOPHIL COUNT 0.2 K/uL (0-0.3); HEMATOCRIT 32.1 % (36.0-46.0); HEMOGLOBIN 9.1 G/DL (11.9-15.5); IMMATURE GRANULOCYTE (%) 2.2 % (0.0-0.7); LYMPHOCYTE (%) 11.9 % (15-42); LYMPHOCYTE COUNT 1.8 K/uL (1.0-2.8); MCH 24.1 PG (29.0-34.0); MCHC 28.3 G/DL (30.0-36.0); MCV 84.9 FL (83-99); MONOCYTE (%) 10.3 % (3-12); MONOCYTE COUNT 1.5 K/uL (0-0.8); NEUTROPHIL (%) 73.9 % (45-76); PLATELET COUNT 572 K/uL (156-360); RBC DIS.WIDTH-CV 19.3 % (11.8-14.6); RBC DIS.WIDTH-SD 59.1 % (39-53); RED BLOOD COUNT 3.78 M/uL (3.80-5.20); WHITE BLOOD COUNT 14.8 K/uL (4.1-10.2)
[2017-12-10 06:23] LABS: CHLORIDE 112 MEQ/L (99-109); GFR ESTIMATE (CALCULATED) 57 mL/min/; GLUCOSE 188 mg/dL (70-99); MAGNESIUM 2.3 mg/dl (1.3-2.7); PHOSPHORUS 3.2 mg/dL (2.5-4.9); POTASSIUM 5.3 MEQ/L (3.7-5.4); SODIUM 139 MEQ/L (136-147); UREA NITROGEN (BUN) 41 mg/dL (9-23)
[2017-12-11] VITALS (24 sets, daily range): BP systolic 89–151; BP diastolic 50–78
[2017-12-11 06:41] LABS: CHLORIDE 110 MEQ/L (99-109); CREATININE 0.9 MG/DL (0.6-1.3); GFR ESTIMATE (CALCULATED) > 59 mL/min/; GLUCOSE 209 mg/dL (70-99); MAGNESIUM 2.1 mg/dl (1.3-2.7); PHOSPHORUS 3.4 mg/dL (2.5-4.9); POTASSIUM 4.3 MEQ/L (3.7-5.4); SODIUM 143 MEQ/L (136-147); UREA NITROGEN (BUN) 43 mg/dL (9-23)
[2017-12-12] VITALS (22 sets, daily range): BP systolic 17–147; BP diastolic 41–80
[2017-12-12 05:33] LABS: HEMATOCRIT 27.8 % (36.0-46.0); MCH 23.8 PG (29.0-34.0); MCHC 28.8 G/DL (30.0-36.0); MCV 82.7 FL (83-99); PLATELET COUNT 574 K/uL (156-360); RBC DIS.WIDTH-CV 19.5 % (11.8-14.6); RBC DIS.WIDTH-SD 58.3 % (39-53); RED BLOOD COUNT 3.36 M/uL (3.80-5.20); WHITE BLOOD COUNT 11.2 K/uL (4.1-10.2)
[2017-12-12 05:34] LABS: DEVICE 840; FI02 45 %; MODE SPONT; PRES. SUPPORT 16 CM/H2O; SITE LR; TOTAL RESP RATE 26 resp/min
[2017-12-12 05:36] LABS: CONTINUOUS POS AIRWAY PRESSURE 6 cm H2O
[2017-12-12 05:37] LABS: BASE EXCESS 0.9 mEq/L (-3 to +3); BICARBONATE 25.2 mEq/L (22-26); CARBOXY HGB 1.6 % (0-5); METHEMOGLOBIN 3.7 % (0-1.5); PCO2 38 mm Hg (35-45); PO2 71 mm Hg (80-100); pH 7.43 (7.35-7.45)
[2017-12-12 06:20] LABS: CHLORIDE 109 MEQ/L (99-109); GFR ESTIMATE (CALCULATED) 57 mL/min/; GLUCOSE 144 mg/dL (70-99); POTASSIUM 4.4 MEQ/L (3.7-5.4); SODIUM 144 MEQ/L (136-147); UREA NITROGEN (BUN) 44 mg/dL (9-23)
[2017-12-13] VITALS (16 sets, daily range): BP systolic 113–170; BP diastolic 57–89
[2017-12-13 05:15] LABS: BASOPHIL (%) 0.6 % (0-1); BASOPHIL COUNT 0.1 K/uL (0-0.1); EOSINOPHIL (%) 1.2 % (0-5); EOSINOPHIL COUNT 0.1 K/uL (0-0.3); HEMATOCRIT 27.9 % (36.0-46.0); HEMOGLOBIN 7.9 G/DL (11.9-15.5); LYMPHOCYTE (%) 15.2 % (15-42); LYMPHOCYTE COUNT 1.7 K/uL (1.0-2.8); MCH 23.4 PG (29.0-34.0); MCHC 28.3 G/DL (30.0-36.0); MCV 82.5 FL (83-99); MONOCYTE (%) 10.9 % (3-12); MONOCYTE COUNT 1.2 K/uL (0-0.8); NEUTROPHIL (%) 71.1 % (45-76); PLATELET COUNT 609 K/uL (156-360); RBC DIS.WIDTH-CV 19.1 % (11.8-14.6); RBC DIS.WIDTH-SD 57.2 % (39-53); RED BLOOD COUNT 3.38 M/uL (3.80-5.20); WHITE BLOOD COUNT 11.3 K/uL (4.1-10.2)
[2017-12-13 06:01] LABS: ALBUMIN 1.9 G/DL (3.2-4.8); ALKALINE PHOSPHATASE 70 IU/L (3-129); ALT (GPT) 5 IU/L (3-49); AST (GOT) 13 IU/L (2-34); CHLORIDE 107 MEQ/L (99-109); DIRECT BILIRUBIN 0.2 mg/dL (0.0-0.3); GFR ESTIMATE (CALCULATED) 57 mL/min/; GLUCOSE 184 mg/dL (70-99); MAGNESIUM 1.8 mg/dl (1.3-2.7); PHOSPHORUS 3.2 mg/dL (2.5-4.9); SODIUM 141 MEQ/L (136-147); TRIGLYCERIDES 138 MG/DL (Normal: <150); UREA NITROGEN (BUN) 43 mg/dL (9-23)
[2017-12-13 06:02] LABS: ALKALINE PHOSPHATASE 82 IU/L (3-129); ALT (GPT) 5 IU/L (3-49); AST (GOT) 13 IU/L (2-34); CHLORIDE 107 MEQ/L (99-109); GFR ESTIMATE (CALCULATED) 57 mL/min/; GLUCOSE 192 mg/dL (70-99); SODIUM 142 MEQ/L (136-147); UREA NITROGEN (BUN) 45 mg/dL (9-23)
[2017-12-13 06:06] LABS: TOTAL BILIRUBIN 0.5 MG/DL (0.0-1.0); TOTAL PROTEIN 6.1 G/DL (6.4-8.3)
[2017-12-14] VITALS (21 sets, daily range): BP systolic 119–166; BP diastolic 55–99
[2017-12-14 05:27] LABS: HEMATOCRIT 27.6 % (36.0-46.0); HEMOGLOBIN 8.2 G/DL (11.9-15.5); MCH 24.3 PG (29.0-34.0); MCHC 29.7 G/DL (30.0-36.0); MCV 81.9 FL (83-99); PLATELET COUNT 570 K/uL (156-360); RBC DIS.WIDTH-CV 18.9 % (11.8-14.6); RBC DIS.WIDTH-SD 55.7 % (39-53); RED BLOOD COUNT 3.37 M/uL (3.80-5.20); WHITE BLOOD COUNT 11.1 K/uL (4.1-10.2)
[2017-12-14 06:06] LABS: CHLORIDE 104 MEQ/L (99-109); CREATININE 0.9 MG/DL (0.6-1.3); GFR ESTIMATE (CALCULATED) > 59 mL/min/; GLUCOSE 188 mg/dL (70-99); PHOSPHORUS 2.8 mg/dL (2.5-4.9); POTASSIUM 3.6 MEQ/L (3.7-5.4); SODIUM 141 MEQ/L (136-147); UREA NITROGEN (BUN) 43 mg/dL (9-23)
[2017-12-15] VITALS (21 sets, daily range): BP systolic 90–159; BP diastolic 41–91
[2017-12-15 05:02] LABS: HEMATOCRIT 27.3 % (36.0-46.0); HEMOGLOBIN 8.1 G/DL (11.9-15.5); MCH 24.5 PG (29.0-34.0); MCHC 29.7 G/DL (30.0-36.0); MCV 82.7 FL (83-99); PLATELET COUNT 518 K/uL (156-360); RBC DIS.WIDTH-CV 18.7 % (11.8-14.6); RBC DIS.WIDTH-SD 55.4 % (39-53); WHITE BLOOD COUNT 9.1 K/uL (4.1-10.2)
[2017-12-15 06:01] LABS: CHLORIDE 105 MEQ/L (99-109); CREATININE 0.8 MG/DL (0.6-1.3); GFR ESTIMATE (CALCULATED) > 59 mL/min/; GLUCOSE 196 mg/dL (70-99); POTASSIUM 3.5 MEQ/L (3.7-5.4); SODIUM 144 MEQ/L (136-147); UREA NITROGEN (BUN) 42 mg/dL (9-23)
[2017-12-15 06:22] LABS: PHOSPHORUS 4.5 mg/dL (2.5-4.9)
[2017-12-16] VITALS (21 sets, daily range): BP systolic 91–169; BP diastolic 43–113
[2017-12-16 05:20] LABS: HEMATOCRIT 28.8 % (36.0-46.0); HEMOGLOBIN 8.4 G/DL (11.9-15.5); MCH 24.1 PG (29.0-34.0); MCHC 29.2 G/DL (30.0-36.0); MCV 82.8 FL (83-99); PLATELET COUNT 523 K/uL (156-360); RBC DIS.WIDTH-CV 19.3 % (11.8-14.6); RBC DIS.WIDTH-SD 55.7 % (39-53); RED BLOOD COUNT 3.48 M/uL (3.80-5.20); WHITE BLOOD COUNT 9.9 K/uL (4.1-10.2)
[2017-12-16 05:48] LABS: CHLORIDE 105 MEQ/L (99-109); CREATININE 0.9 MG/DL (0.6-1.3); GFR ESTIMATE (CALCULATED) > 59 mL/min/; GLUCOSE 161 mg/dL (70-99); PHOSPHORUS 3.4 mg/dL (2.5-4.9); POTASSIUM 3.6 MEQ/L (3.7-5.4); SODIUM 144 MEQ/L (136-147); UREA NITROGEN (BUN) 46 mg/dL (9-23)
[2017-12-16 05:55] LABS: MAGNESIUM 2.4 mg/dl (1.3-2.7)
[2017-12-17] VITALS (18 sets, daily range): BP systolic 127–166; BP diastolic 64–115
[2017-12-17 05:32] LABS: HEMATOCRIT 32.2 % (36.0-46.0); HEMOGLOBIN 9.2 G/DL (11.9-15.5); MCH 23.9 PG (29.0-34.0); MCHC 28.6 G/DL (30.0-36.0); MCV 83.6 FL (83-99); PLATELET COUNT 510 K/uL (156-360); RBC DIS.WIDTH-SD 56.2 % (39-53); RED BLOOD COUNT 3.85 M/uL (3.80-5.20); WHITE BLOOD COUNT 10.9 K/uL (4.1-10.2)
[2017-12-17 06:07] LABS: CHLORIDE 105 MEQ/L (99-109); CREATININE 0.8 MG/DL (0.6-1.3); GFR ESTIMATE (CALCULATED) > 59 mL/min/; GLUCOSE 176 mg/dL (70-99); MAGNESIUM 2.3 mg/dl (1.3-2.7); PHOSPHORUS 4.2 mg/dL (2.5-4.9); SODIUM 143 MEQ/L (136-147); UREA NITROGEN (BUN) 46 mg/dL (9-23)
[2017-12-17 06:08] LABS: POTASSIUM 4.5 MEQ/L (3.7-5.4)
[2017-12-18] VITALS (21 sets, daily range): BP systolic 115–171; BP diastolic 64–100
[2017-12-18 05:42] LABS: HEMOGLOBIN 9.8 G/DL (11.9-15.5); MCH 24.3 PG (29.0-34.0); MCHC 28.8 G/DL (30.0-36.0); MCV 84.4 FL (83-99); PLATELET COUNT 561 K/uL (156-360); RBC DIS.WIDTH-CV 19.6 % (11.8-14.6); RBC DIS.WIDTH-SD 58.2 % (39-53); RED BLOOD COUNT 4.03 M/uL (3.80-5.20); WHITE BLOOD COUNT 11.8 K/uL (4.1-10.2)
[2017-12-18 06:32] LABS: CHLORIDE 109 MEQ/L (99-109); CREATININE 0.8 MG/DL (0.6-1.3); GFR ESTIMATE (CALCULATED) > 59 mL/min/; GLUCOSE 173 mg/dL (70-99); MAGNESIUM 2.3 mg/dl (1.3-2.7); PHOSPHORUS 3.6 mg/dL (2.5-4.9); POTASSIUM 4.6 MEQ/L (3.7-5.4); SODIUM 145 MEQ/L (136-147); UREA NITROGEN (BUN) 44 mg/dL (9-23)
[2017-12-18 13:31] LABS: COMMENTS - BLOOD GASES +A +C; DEVICE NC; O2 SATURATION (CALCULATED) 90.1 % (95-99); PCO2 39 mm Hg (35-45); PO2 52 mm Hg (80-100); SITE RR; TOTAL RESP RATE 28 resp/min; pH 7.45 (7.35-7.45)
[2017-12-18 13:32] LABS: BASE EXCESS 2.9 mEq/L (-3 to +3); BICARBONATE 27.1 mEq/L (22-26); CARBOXY HGB 1.9 % (0-5); METHEMOGLOBIN 1.3 % (0-1.5)
[2017-12-18 13:35] LABS: FI02 21 %
[2017-12-19] VITALS (23 sets, daily range): BP systolic 139–187; BP diastolic 74–156
[2017-12-19 07:02] LABS: HEMOGLOBIN 9.2 G/DL (11.9-15.5); MCH 24.2 PG (29.0-34.0); MCHC 28.8 G/DL (30.0-36.0); MCV 84.2 FL (83-99); PLATELET COUNT 491 K/uL (156-360); RBC DIS.WIDTH-CV 19.9 % (11.8-14.6); RBC DIS.WIDTH-SD 59.4 % (39-53); WHITE BLOOD COUNT 12.5 K/uL (4.1-10.2)
[2017-12-19 07:37] LABS: ALBUMIN 2.8 G/DL (3.2-4.8); ALKALINE PHOSPHATASE 85 IU/L (3-129); ALT (GPT) 13 IU/L (3-49); AST (GOT) 16 IU/L (2-34); CHLORIDE 114 MEQ/L (99-109); CREATININE 0.8 MG/DL (0.6-1.3); DIRECT BILIRUBIN 0.2 mg/dL (0.0-0.3); GFR ESTIMATE (CALCULATED) > 59 mL/min/; GLUCOSE 186 mg/dL (70-99); MAGNESIUM 2.1 mg/dl (1.3-2.7); PHOSPHORUS 3.6 mg/dL (2.5-4.9); POTASSIUM 4.4 MEQ/L (3.7-5.4); SODIUM 150 MEQ/L (136-147); TOTAL BILIRUBIN 0.5 MG/DL (0.0-1.0); TOTAL PROTEIN 7.3 G/DL (6.4-8.3); TRIGLYCERIDES 148 MG/DL (Normal: <150); UREA NITROGEN (BUN) 52 mg/dL (9-23)
[2017-12-19 22:33] LABS: CREATININE 0.7 MG/DL (0.6-1.3); GFR ESTIMATE (CALCULATED) > 59 mL/min/; GLUCOSE 186 mg/dL (70-99); UREA NITROGEN (BUN) 52 mg/dL (9-23)
[2017-12-19 22:34] LABS: ALBUMIN 2.8 G/DL (3.2-4.8); ALKALINE PHOSPHATASE 85 IU/L (3-129); ALT (GPT) 13 IU/L (3-49); AST (GOT) 16 IU/L (2-34); CHLORIDE 114 MEQ/L (99-109); POTASSIUM 4.4 MEQ/L (3.7-5.4); SODIUM 150 MEQ/L (136-147); TOTAL BILIRUBIN 0.5 MG/DL (0.0-1.0); TOTAL PROTEIN 7.3 G/DL (6.4-8.3)
[2017-12-20] VITALS (18 sets, daily range): BP systolic 113–176; BP diastolic 52–97
[2017-12-20 06:16] LABS: CHLORIDE 114 MEQ/L (99-109); CREATININE 0.9 MG/DL (0.6-1.3); GFR ESTIMATE (CALCULATED) > 59 mL/min/; GLUCOSE 212 mg/dL (70-99); MAGNESIUM 1.9 mg/dl (1.3-2.7); POTASSIUM 4.6 MEQ/L (3.7-5.4); SODIUM 145 MEQ/L (136-147); UREA NITROGEN (BUN) 53 mg/dL (9-23)
[2017-12-20 07:24] LABS: BASOPHIL (%) 0.4 % (0-1); BASOPHIL COUNT 0.1 K/uL (0-0.1); EOSINOPHIL (%) 1.8 % (0-5); EOSINOPHIL COUNT 0.3 K/uL (0-0.3); HEMATOCRIT 33.1 % (36.0-46.0); HEMOGLOBIN 9.1 G/DL (11.9-15.5); IMMATURE GRANULOCYTE (%) 2.3 % (0.0-0.7); LYMPHOCYTE COUNT 2.9 K/uL (1.0-2.8); MCH 24.4 PG (29.0-34.0); MCHC 27.5 G/DL (30.0-36.0); MONOCYTE (%) 10.4 % (3-12); MONOCYTE COUNT 1.5 K/uL (0-0.8); NEUTROPHIL (%) 65.1 % (45-76); NEUTROPHIL COUNT 9.5 K/uL (1.8-6.4); NRBC (%) 0.1 /100 WBC (0-0); RBC DIS.WIDTH-CV 20.4 % (11.8-14.6); RBC DIS.WIDTH-SD 63.9 % (39-53); RED BLOOD COUNT 3.73 M/uL (3.80-5.20); WHITE BLOOD COUNT 14.7 K/uL (4.1-10.2)
[2017-12-20 07:25] LABS: MCV 88.7 FL (83-99)
[2017-12-20 07:46] LABS: PLAT.SUFFICIENCY INCREASED; PLATELET CLUMPS PRESENT - PLATELET COUNT APPEARS INCREASED
[2017-12-20 08:08] LABS: PLATELET COUNT UNABLE TO REPORT K/uL (156-360)
[2017-12-20 10:01] LABS: 24 HR VOLUME 1900 MLS; URINE UREA NITROGEN 19912 MG/24 HR
[2017-12-21] VITALS (15 sets, daily range): BP systolic 99–169; BP diastolic 63–103
[2017-12-21 05:42] LABS: HEMATOCRIT 33.8 % (36.0-46.0); HEMOGLOBIN 9.7 G/DL (11.9-15.5); MCH 24.2 PG (29.0-34.0); MCHC 28.7 G/DL (30.0-36.0); RBC DIS.WIDTH-CV 20.6 % (11.8-14.6); RBC DIS.WIDTH-SD 60.3 % (39-53); RED BLOOD COUNT 4.01 M/uL (3.80-5.20); WHITE BLOOD COUNT 16.6 K/uL (4.1-10.2)
[2017-12-21 05:43] LABS: MCV 84.3 FL (83-99); PLATELET COUNT 470 K/uL (156-360)
[2017-12-21 05:53] LABS: CHLORIDE 112 MEQ/L (99-109); CREATININE 0.8 MG/DL (0.6-1.3); GFR ESTIMATE (CALCULATED) > 59 mL/min/; GLUCOSE 230 mg/dL (70-99); MAGNESIUM 1.8 mg/dl (1.3-2.7); PHOSPHORUS 4.1 mg/dL (2.5-4.9); POTASSIUM 4.6 MEQ/L (3.7-5.4); SODIUM 145 MEQ/L (136-147); UREA NITROGEN (BUN) 48 mg/dL (9-23)
[2017-12-21 16:28] LABS: APPEARANCE SL.HAZY ((CLEAR)); BILIRUBIN NEGATIVE; BLOOD NEGATIVE; COLOR YELLOW ((YELLOW)); GLUCOSE (STRIP) NEGATIVE; KETONES NEGATIVE; LEUKOCYTES TRACE; NITRITE NEGATIVE; PROTEIN (STRIP) 30; SPECIFIC GRAVITY 1.018 (1.000-1.030); UROBILINOGEN 0.2 MG/DL (0.2-1.0)
[2017-12-21 16:48] LABS: BACTERIA RARE /HPF; EPITHELIAL CELLS NONE SEEN /HPF; MUCUS TRACE /LPF; UCUL ADDED? YES; WHITE BLOOD CELLS 15-20 /HPF (0-5)
[2017-12-22] VITALS (30 sets, daily range): BP systolic 75–161; BP diastolic 40–104
[2017-12-22 04:49] LABS: BASE EXCESS -4.2 mEq/L (-3 to +3); BICARBONATE 22.1 mEq/L (22-26); O2 SATURATION (CALCULATED) 99.8 % (95-99); PCO2 45 mm Hg (35-45); PO2 230 mm Hg (80-100)
[2017-12-22 04:50] LABS: COMMENTS - BLOOD GASES A+C+; DEVICE 840VENT; FI02 100 %; MECHANICAL RATE 16 resp/min; MODE AC; PEEP 5 CM/H20; SITE LR; TIDAL VOLUME 450 ML; TOTAL RESP RATE 16 resp/min
[2017-12-22 05:28] LABS: HEMATOCRIT 37.1 % (36.0-46.0); HEMOGLOBIN 10.5 G/DL (11.9-15.5); MCH 24.4 PG (29.0-34.0); MCHC 28.3 G/DL (30.0-36.0); MCV 86.1 FL (83-99); PLATELET COUNT 488 K/uL (156-360); RBC DIS.WIDTH-CV 20.8 % (11.8-14.6); RBC DIS.WIDTH-SD 63.7 % (39-53); RED BLOOD COUNT 4.31 M/uL (3.80-5.20); WHITE BLOOD COUNT 21.1 K/uL (4.1-10.2)
[2017-12-22 06:38] LABS: CHLORIDE 107 MEQ/L (99-109); GFR ESTIMATE (CALCULATED) 57 mL/min/; GLUCOSE 189 mg/dL (70-99); PHOSPHORUS 5.4 mg/dL (2.5-4.9); POTASSIUM 4.7 MEQ/L (3.7-5.4); SODIUM 140 MEQ/L (136-147); UREA NITROGEN (BUN) 40 mg/dL (9-23)
[2017-12-23] VITALS (25 sets, daily range): BP systolic 96–154; BP diastolic 44–80
[2017-12-23 05:02] LABS: CHLORIDE 109 mEq/L (99-109); POTASSIUM 4.2 mEq/L (3.7-5.4); SODIUM 137 mEq/L (136-147)
[2017-12-23 05:03] LABS: MAGNESIUM 1.7 mg/dL (1.3-2.7)
[2017-12-23 05:04] LABS: GLUCOSE 175 mg/dL (70-99)
[2017-12-23 05:08] LABS: CREATININE 1.1 mg/dL (0.6-1.3); GFR ESTIMATE (CALCULATED) 51 mL/min/; PHOSPHORUS 3.6 mg/dL (2.5-4.9)
[2017-12-23 05:09] LABS: UREA NITROGEN (BUN) 44 mg/dL (9-23)
[2017-12-24] VITALS (24 sets, daily range): BP systolic 93–157; BP diastolic 45–104
[2017-12-24 05:56] LABS: CHLORIDE 116 MEQ/L (99-109); CREATININE 0.7 MG/DL (0.6-1.3); GFR ESTIMATE (CALCULATED) > 59 mL/min/; GLUCOSE 169 mg/dL (70-99); POTASSIUM 3.2 MEQ/L (3.7-5.4); SODIUM 141 MEQ/L (136-147); UREA NITROGEN (BUN) 29 mg/dL (9-23)
[2017-12-24 05:57] LABS: MAGNESIUM 1.4 mg/dl (1.3-2.7); PHOSPHORUS 2.3 mg/dL (2.5-4.9)
[2017-12-24 11:20] LABS: HEMATOCRIT 20.7 % (36.0-46.0); HEMOGLOBIN 5.9 G/DL (11.9-15.5); MCHC 28.5 G/DL (30.0-36.0); MCV 87.7 FL (83-99); RBC DIS.WIDTH-CV 20.9 % (11.8-14.6); RBC DIS.WIDTH-SD 64.7 % (39-53); RED BLOOD COUNT 2.36 M/uL (3.80-5.20); WHITE BLOOD COUNT 10.1 K/uL (4.1-10.2)
[2017-12-24 12:25] LABS: ABS NEUTROPHIL COUNT 8.3; ANISOCYTOSIS 1+; BAND NEUTROPHILS 1.7 % (0-8.0); BURR CELLS 1+; EOSINOPHIL ABS CT 0; LYMPHOCYTES 13.2 % (15.0-45.0); MICROCYTOSIS 1+; MONOCYTES 4.4 % (0-9.0); NUCLEATED RBC'S 0.9; PLAT.SUFFICIENCY ADEQUATE; POIKILOCYTOSIS 1+; SEG.NEUTROPHILS 80.7 % (46.0-76.0); SMUDGE CELLS 11.4
[2017-12-24 12:32] LABS: PLATELET COUNT 228 K/uL (156-360)
[2017-12-24 13:53] LABS: BASOPHIL (%) 0.3 % (0-1); EOSINOPHIL (%) 1.2 % (0-5); EOSINOPHIL COUNT 0.2 K/uL (0-0.3); HEMATOCRIT 28.5 % (36.0-46.0); IMMATURE GRANULOCYTE (%) 1.5 % (0.0-0.7); LYMPHOCYTE (%) 14.8 % (15-42); LYMPHOCYTE COUNT 2.1 K/uL (1.0-2.8); MCH 25.1 PG (29.0-34.0); MCHC 29.5 G/DL (30.0-36.0); MCV 85.3 FL (83-99); MONOCYTE (%) 8.4 % (3-12); MONOCYTE COUNT 1.2 K/uL (0-0.8); NEUTROPHIL (%) 73.8 % (45-76); NEUTROPHIL COUNT 10.6 K/uL (1.8-6.4); PLATELET COUNT 280 K/uL (156-360); RBC DIS.WIDTH-SD 64.3 % (39-53); WHITE BLOOD COUNT 14.4 K/uL (4.1-10.2)
[2017-12-24 13:55] LABS: HEMOGLOBIN 8.4 G/DL (11.9-15.5); RED BLOOD COUNT 3.34 M/uL (3.80-5.20)
[2017-12-25] VITALS (23 sets, daily range): BP systolic 120–179; BP diastolic 52–100
[2017-12-25 05:57] LABS: CHLORIDE 113 MEQ/L (99-109); CREATININE 0.7 MG/DL (0.6-1.3); GFR ESTIMATE (CALCULATED) > 59 mL/min/; GLUCOSE 152 mg/dL (70-99); PHOSPHORUS 3.1 mg/dL (2.5-4.9); POTASSIUM 3.8 MEQ/L (3.7-5.4); SODIUM 139 MEQ/L (136-147); UREA NITROGEN (BUN) 27 mg/dL (9-23)
[2017-12-25 05:58] LABS: MAGNESIUM 1.8 mg/dl (1.3-2.7)
[2017-12-25 07:29] LABS: HEMATOCRIT 27.2 % (36.0-46.0); HEMOGLOBIN 8.2 G/DL (11.9-15.5); MCH 25.6 PG (29.0-34.0); MCHC 30.1 G/DL (30.0-36.0); PLATELET COUNT 268 K/uL (156-360); RBC DIS.WIDTH-SD 63.7 % (39-53); WHITE BLOOD COUNT 13.2 K/uL (4.1-10.2)
[2017-12-26] VITALS (24 sets, daily range): BP systolic 125–194; BP diastolic 62–155
[2017-12-26 04:50] LABS: HEMATOCRIT 29.4 % (36.0-46.0); MCH 25.6 PG (29.0-34.0); MCHC 30.6 G/DL (30.0-36.0); MCV 83.5 FL (83-99); PLATELET COUNT 291 K/uL (156-360); RBC DIS.WIDTH-CV 20.7 % (11.8-14.6); RBC DIS.WIDTH-SD 61.6 % (39-53); RED BLOOD COUNT 3.52 M/uL (3.80-5.20)
[2017-12-26 05:11] LABS: CHLORIDE 108 mEq/L (99-109); POTASSIUM 3.7 mEq/L (3.7-5.4); SODIUM 138 mEq/L (136-147)
[2017-12-26 05:14] LABS: GLUCOSE 202 mg/dL (70-99); TOTAL PROTEIN 6.8 g/dL (6.4-8.3)
[2017-12-26 05:16] LABS: TOTAL BILIRUBIN 0.5 mg/dL (0.0-1.0)
[2017-12-26 05:17] LABS: ALKALINE PHOSPHATASE 109 IU/L (3-129); CREATININE 0.8 mg/dL (0.6-1.3); GFR ESTIMATE (CALCULATED) > 59 mL/min/
[2017-12-26 05:18] LABS: UREA NITROGEN (BUN) 23 mg/dL (9-23)
[2017-12-26 05:19] LABS: AST (GOT) 18 IU/L (2-34)
[2017-12-26 05:20] LABS: ALT (GPT) 20 IU/L (3-49)
[2017-12-27] VITALS (12 sets, daily range): BP systolic 130–168; BP diastolic 60–80
[2017-12-27 05:16] LABS: BASOPHIL (%) 0.5 % (0-1); BASOPHIL COUNT 0.1 K/uL (0-0.1); EOSINOPHIL (%) 1.9 % (0-5); EOSINOPHIL COUNT 0.2 K/uL (0-0.3); HEMOGLOBIN 8.3 G/DL (11.9-15.5); IMMATURE GRANULOCYTE (%) 0.8 % (0.0-0.7); LYMPHOCYTE (%) 16.8 % (15-42); MCH 25.5 PG (29.0-34.0); MCHC 30.7 G/DL (30.0-36.0); MCV 82.8 FL (83-99); MONOCYTE (%) 7.7 % (3-12); MONOCYTE COUNT 0.9 K/uL (0-0.8); NEUTROPHIL (%) 72.3 % (45-76); NEUTROPHIL COUNT 8.4 K/uL (1.8-6.4); PLATELET COUNT 284 K/uL (156-360); RBC DIS.WIDTH-CV 20.3 % (11.8-14.6); RBC DIS.WIDTH-SD 61.1 % (39-53); RED BLOOD COUNT 3.26 M/uL (3.80-5.20); WHITE BLOOD COUNT 11.6 K/uL (4.1-10.2)
[2017-12-27 05:40] LABS: CHLORIDE 102 MEQ/L (99-109); CREATININE 0.7 MG/DL (0.6-1.3); GFR ESTIMATE (CALCULATED) > 59 mL/min/; GLUCOSE 178 mg/dL (70-99); PHOSPHORUS 3.6 mg/dL (2.5-4.9); POTASSIUM 3.6 MEQ/L (3.7-5.4); SODIUM 137 MEQ/L (136-147); UREA NITROGEN (BUN) 19 mg/dL (9-23)
[2017-12-27 05:41] LABS: MAGNESIUM 1.5 mg/dl (1.3-2.7)
[2017-12-28] VITALS (7 sets, daily range): BP systolic 142–185; BP diastolic 67–92
[2017-12-28 07:24] LABS: BASOPHIL (%) 0.5 % (0-1); BASOPHIL COUNT 0.1 K/uL (0-0.1); EOSINOPHIL (%) 1.3 % (0-5); EOSINOPHIL COUNT 0.2 K/uL (0-0.3); HEMOGLOBIN 9.9 G/DL (11.9-15.5); IMMATURE GRANULOCYTE (%) 0.9 % (0.0-0.7); LYMPHOCYTE (%) 15.2 % (15-42); MCH 24.6 PG (29.0-34.0); MCV 82.1 FL (83-99); MONOCYTE (%) 6.6 % (3-12); MONOCYTE COUNT 0.9 K/uL (0-0.8); NEUTROPHIL (%) 75.5 % (45-76); NEUTROPHIL COUNT 9.9 K/uL (1.8-6.4); PLATELET COUNT 329 K/uL (156-360); RBC DIS.WIDTH-CV 20.6 % (11.8-14.6); RBC DIS.WIDTH-SD 60.5 % (39-53); WHITE BLOOD COUNT 13.1 K/uL (4.1-10.2)
[2017-12-28 07:27] LABS: RED BLOOD COUNT 4.02 M/uL (3.80-5.20)
[2017-12-28 07:49] LABS: CHLORIDE 99 MEQ/L (99-109); CREATININE 0.7 MG/DL (0.6-1.3); GFR ESTIMATE (CALCULATED) > 59 mL/min/; GLUCOSE 220 mg/dL (70-99); MAGNESIUM 1.6 mg/dl (1.3-2.7); POTASSIUM 4.1 MEQ/L (3.7-5.4); SODIUM 134 MEQ/L (136-147); UREA NITROGEN (BUN) 21 mg/dL (9-23)
[2017-12-29 00:49] VITALS: BP 145/85
[2017-12-29 05:56] VITALS: BP 141/71
[2017-12-29 07:58] VITALS: BP 154/74
[2017-12-29 08:34] LABS: HEMATOCRIT 31.1 % (36.0-46.0); HEMOGLOBIN 9.4 G/DL (11.9-15.5); MCHC 30.2 G/DL (30.0-36.0); MCV 82.7 FL (83-99); PLATELET COUNT 301 K/uL (156-360); RBC DIS.WIDTH-CV 20.9 % (11.8-14.6); RBC DIS.WIDTH-SD 61.1 % (39-53); RED BLOOD COUNT 3.76 M/uL (3.80-5.20); WHITE BLOOD COUNT 12.3 K/uL (4.1-10.2)
[2017-12-29 08:54] LABS: CHLORIDE 99 MEQ/L (99-109); CREATININE 0.7 MG/DL (0.6-1.3); GFR ESTIMATE (CALCULATED) > 59 mL/min/; GLUCOSE 163 mg/dL (70-99); POTASSIUM 3.8 MEQ/L (3.7-5.4); SODIUM 135 MEQ/L (136-147); UREA NITROGEN (BUN) 21 mg/dL (9-23)
[2017-12-29 11:18] VITALS: BP 164/75
[2017-12-29 16:15] VITALS: BP 154/75
[2017-12-29 20:30] VITALS: BP 160/74
[2017-12-30 00:38] VITALS: BP 177/72
[2017-12-30 04:53] VITALS: BP 146/65
[2017-12-30 05:22] LABS: HEMATOCRIT 32.3 % (36.0-46.0); HEMOGLOBIN 9.7 G/DL (11.9-15.5); MCH 24.9 PG (29.0-34.0); PLATELET COUNT 318 K/uL (156-360); RBC DIS.WIDTH-CV 21.1 % (11.8-14.6); RBC DIS.WIDTH-SD 62.4 % (39-53); RED BLOOD COUNT 3.89 M/uL (3.80-5.20); WHITE BLOOD COUNT 13.5 K/uL (4.1-10.2)
[2017-12-30 05:52] LABS: CHLORIDE 96 MEQ/L (99-109); CREATININE 0.8 MG/DL (0.6-1.3); GFR ESTIMATE (CALCULATED) > 59 mL/min/; GLUCOSE 210 mg/dL (70-99); POTASSIUM 4.1 MEQ/L (3.7-5.4); SODIUM 134 MEQ/L (136-147); UREA NITROGEN (BUN) 20 mg/dL (9-23)
[2017-12-30 07:53] VITALS: BP 138/66
[2017-12-30 11:52] VITALS: BP 148/66
[2017-12-30 16:26] VITALS: BP 169/74
[2017-12-30 21:00] VITALS: BP 170/77
[2017-12-31] VITALS: BP 171/80
[2017-12-31 04:25] LABS: APPEARANCE CLOUDY ((CLEAR)); BILIRUBIN NEGATIVE; BLOOD NEGATIVE; COLOR AMBER ((YELLOW)); GLUCOSE (STRIP) NEGATIVE; KETONES NEGATIVE; LEUKOCYTES MODERATE; NITRITE NEGATIVE; PROTEIN (STRIP) 30; SPECIFIC GRAVITY 1.028 (1.000-1.030); UROBILINOGEN 0.2 MG/DL (0.2-1.0)
[2017-12-31 04:35] LABS: BACTERIA RARE /HPF; EPITHELIAL CELLS RARE /HPF; MUCUS 3+ /LPF; RED BLOOD CELLS 30-40 /HPF (0-5); UCUL ADDED? YES; WHITE BLOOD CELLS TNTC /HPF (0-5)
[2017-12-31 05:30] VITALS: BP 150/81
[2017-12-31 05:34] LABS: HEMOGLOBIN 9.7 G/DL (11.9-15.5); MCH 25.1 PG (29.0-34.0); MCHC 30.3 G/DL (30.0-36.0); MCV 82.9 FL (83-99); PLATELET COUNT 336 K/uL (156-360); RBC DIS.WIDTH-CV 21.2 % (11.8-14.6); RBC DIS.WIDTH-SD 62.8 % (39-53); RED BLOOD COUNT 3.86 M/uL (3.80-5.20); WHITE BLOOD COUNT 13.1 K/uL (4.1-10.2)
[2017-12-31 05:56] LABS: CHLORIDE 96 MEQ/L (99-109); CREATININE 0.8 MG/DL (0.6-1.3); GFR ESTIMATE (CALCULATED) > 59 mL/min/; GLUCOSE 172 mg/dL (70-99); POTASSIUM 4.1 MEQ/L (3.7-5.4); SODIUM 135 MEQ/L (136-147); UREA NITROGEN (BUN) 22 mg/dL (9-23)
[2017-12-31 08:11] VITALS: BP 148/70
[2017-12-31 11:30] VITALS: BP 134/70
[2017-12-31 17:29] VITALS: BP 170/79
[2017-12-31 20:07] VITALS: BP 143/74
[2018-01-01] VITALS (8 sets, daily range): BP systolic 128–177; BP diastolic 60–92
[2018-01-01 06:23] LABS: HEMATOCRIT 33.7 % (36.0-46.0); HEMOGLOBIN 10.2 G/DL (11.9-15.5); MCH 25.2 PG (29.0-34.0); MCHC 30.3 G/DL (30.0-36.0); MCV 83.4 FL (83-99); PLATELET COUNT 342 K/uL (156-360); RBC DIS.WIDTH-CV 21.2 % (11.8-14.6); RED BLOOD COUNT 4.04 M/uL (3.80-5.20); WHITE BLOOD COUNT 12.4 K/uL (4.1-10.2)
[2018-01-01 06:50] LABS: CHLORIDE 95 MEQ/L (99-109); CREATININE 0.8 MG/DL (0.6-1.3); GFR ESTIMATE (CALCULATED) > 59 mL/min/; GLUCOSE 175 mg/dL (70-99); POTASSIUM 4.3 MEQ/L (3.7-5.4); SODIUM 135 MEQ/L (136-147); UREA NITROGEN (BUN) 22 mg/dL (9-23)
[2018-01-02 03:54] VITALS: BP 143/69
[2018-01-02 05:21] LABS: HEMATOCRIT 33.8 % (36.0-46.0); HEMOGLOBIN 10.2 G/DL (11.9-15.5); MCH 25.3 PG (29.0-34.0); MCHC 30.2 G/DL (30.0-36.0); MCV 83.9 FL (83-99); PLATELET COUNT 345 K/uL (156-360); RBC DIS.WIDTH-CV 21.2 % (11.8-14.6); RBC DIS.WIDTH-SD 63.8 % (39-53); RED BLOOD COUNT 4.03 M/uL (3.80-5.20); WHITE BLOOD COUNT 11.1 K/uL (4.1-10.2)
[2018-01-02 05:45] LABS: CHLORIDE 94 MEQ/L (99-109); CREATININE 0.8 MG/DL (0.6-1.3); GFR ESTIMATE (CALCULATED) > 59 mL/min/; GLUCOSE 169 mg/dL (70-99); POTASSIUM 4.2 MEQ/L (3.7-5.4); SODIUM 134 MEQ/L (136-147); UREA NITROGEN (BUN) 23 mg/dL (9-23)
[2018-01-02 08:19] VITALS: BP 145/75
[2018-01-02 12:00] VITALS: BP 138/69
[2018-01-02 16:00] VITALS: BP 162/71
[2018-01-02 18:56] VITALS: BP 170/86
[2018-01-03 00:39] VITALS: BP 152/69
[2018-01-03 04:20] VITALS: BP 142/70
[2018-01-03 05:37] LABS: HEMATOCRIT 32.2 % (36.0-46.0); HEMOGLOBIN 9.8 G/DL (11.9-15.5); MCH 25.7 PG (29.0-34.0); MCHC 30.4 G/DL (30.0-36.0); MCV 84.3 FL (83-99); PLATELET COUNT 318 K/uL (156-360); RBC DIS.WIDTH-CV 21.2 % (11.8-14.6); RBC DIS.WIDTH-SD 64.6 % (39-53); RED BLOOD COUNT 3.82 M/uL (3.80-5.20); WHITE BLOOD COUNT 11.3 K/uL (4.1-10.2)
[2018-01-03 05:57] LABS: CHLORIDE 96 MEQ/L (99-109); CREATININE 0.8 MG/DL (0.6-1.3); GFR ESTIMATE (CALCULATED) > 59 mL/min/; GLUCOSE 174 mg/dL (70-99); POTASSIUM 4.2 MEQ/L (3.7-5.4); SODIUM 135 MEQ/L (136-147); UREA NITROGEN (BUN) 22 mg/dL (9-23)
[2018-01-03 08:30] VITALS: BP 135/62
[2018-01-03 16:00] VITALS: BP 136/71
[2018-01-03 20:45] VITALS: BP 146/75
[2018-01-04 01:47] VITALS: BP 152/65
[2018-01-04 05:29] LABS: HEMATOCRIT 33.2 % (36.0-46.0); HEMOGLOBIN 9.9 G/DL (11.9-15.5); MCH 25.4 PG (29.0-34.0); MCHC 29.8 G/DL (30.0-36.0); MCV 85.3 FL (83-99); PLATELET COUNT 317 K/uL (156-360); RBC DIS.WIDTH-CV 21.4 % (11.8-14.6); RBC DIS.WIDTH-SD 66.2 % (39-53); RED BLOOD COUNT 3.89 M/uL (3.80-5.20); WHITE BLOOD COUNT 10.3 K/uL (4.1-10.2)
[2018-01-04 05:56] LABS: CHLORIDE 96 MEQ/L (99-109); CREATININE 0.8 MG/DL (0.6-1.3); GFR ESTIMATE (CALCULATED) > 59 mL/min/; GLUCOSE 137 mg/dL (70-99); POTASSIUM 4.2 MEQ/L (3.7-5.4); SODIUM 136 MEQ/L (136-147); UREA NITROGEN (BUN) 20 mg/dL (9-23)
[2018-01-04 09:36] VITALS: BP 149/70
[2018-01-04 16:06] VITALS: BP 167/76
[2018-01-04 19:47] VITALS: BP 166/77
[2018-01-05] VITALS (7 sets, daily range): BP systolic 134–167; BP diastolic 62–79
[2018-01-05 05:22] LABS: HEMATOCRIT 33.3 % (36.0-46.0); MCH 25.5 PG (29.0-34.0); MCV 84.9 FL (83-99); PLATELET COUNT 307 K/uL (156-360); RBC DIS.WIDTH-CV 21.2 % (11.8-14.6); RBC DIS.WIDTH-SD 65.8 % (39-53); RED BLOOD COUNT 3.92 M/uL (3.80-5.20); WHITE BLOOD COUNT 10.4 K/uL (4.1-10.2)
[2018-01-05 06:15] LABS: CHLORIDE 95 MEQ/L (99-109); CREATININE 0.8 MG/DL (0.6-1.3); GFR ESTIMATE (CALCULATED) > 59 mL/min/; GLUCOSE 180 mg/dL (70-99); POTASSIUM 4.2 MEQ/L (3.7-5.4); SODIUM 134 MEQ/L (136-147); UREA NITROGEN (BUN) 23 mg/dL (9-23)
[2018-01-06 04:55] VITALS: BP 132/67
[2018-01-06 06:08] LABS: HEMATOCRIT 34.1 % (36.0-46.0); HEMOGLOBIN 10.1 G/DL (11.9-15.5); MCH 25.4 PG (29.0-34.0); MCHC 29.6 G/DL (30.0-36.0); MCV 85.7 FL (83-99); PLATELET COUNT 319 K/uL (156-360); RBC DIS.WIDTH-CV 21.2 % (11.8-14.6); RBC DIS.WIDTH-SD 66.6 % (39-53); RED BLOOD COUNT 3.98 M/uL (3.80-5.20)
[2018-01-06 06:40] LABS: CHLORIDE 96 MEQ/L (99-109); CREATININE 0.8 MG/DL (0.6-1.3); GFR ESTIMATE (CALCULATED) > 59 mL/min/; GLUCOSE 173 mg/dL (70-99); POTASSIUM 4.1 MEQ/L (3.7-5.4); SODIUM 134 MEQ/L (136-147); UREA NITROGEN (BUN) 26 mg/dL (9-23)
[2018-01-06 07:30] VITALS: BP 168/79
[2018-01-06 12:08] VITALS: BP 133/98
[2018-01-06] MEDS ORDERED: ALPRAZOLAM0.25 M2 GT (12:32)
== END 2018-01-06 18:39 | DRG 329 ==
LOC: ENRESERV 22:26 → 4WEST 11-23 05:24 → 2SOUTH 11-23 05:24 → 5EAST 11-23 05:24 → ENRESERV 11-23 10:55 → 2SOUTH 11-23 10:57 → 5EAST 11-23 14:40 → 2SOUTH 11-23 15:38 → ENRESERV 11-29 14:23 → 5EAST 11-29 14:26 → 4WEST 11-29 16:35 → ENRESERV 11-29 16:39 → 4WEST 11-29 16:47 → ENRESERV 12-18 16:42 → CANRESERV 12-18 17:35 → 4WEST 12-18 17:58 → ENRESERV 12-27 14:02 → 4EAST 12-27 15:11
PROVIDERS: Anesthesiology; Emergency Medicine; Internal Medicine Critical Care Medicine; Physician Assistant; Specialist; Surgery; Thoracic Surgery (Cardiothoracic Vascular Surgery)
PROC: 0DTJ0ZZ Resection of Appendix, Open Approach (ICD-10-PCS; principal; 2017-11-23)
PROC: 0DTG0ZZ Resection of Left Large Intestine, Open Approach (ICD-10-PCS; principal; 2017-11-23)
PROC: 30233N1 Transfusion of Nonautologous Red Blood Cells into Peripheral Vein, Percutaneous Approach (ICD-10-PCS; 2017-11-24)
PROC: 0DBE0ZZ Excision of Large Intestine, Open Approach (ICD-10-PCS; 2017-11-29)
PROC: 02HV33Z Insertion of Infusion Device into Superior Vena Cava, Percutaneous Approach (ICD-10-PCS; 2017-11-29)
PROC: 0DTF0ZZ Resection of Right Large Intestine, Open Approach (ICD-10-PCS; 2017-11-29)
PROC: 0D1B0Z4 Bypass Ileum to Cutaneous, Open Approach (ICD-10-PCS; 2017-11-29)
PROC: 5A1955Z Respiratory Ventilation, Greater than 96 Consecutive Hours (ICD-10-PCS; 2017-11-29)
PROC: 0BH17EZ Insertion of Endotracheal Airway into Trachea, Via Natural or Artificial Opening (ICD-10-PCS; 2017-11-29)
PROC: 02HV33Z Insertion of Infusion Device into Superior Vena Cava, Percutaneous Approach (ICD-10-PCS; 2017-12-02)
PROC: 3E0436Z Introduction of Nutritional Substance into Central Vein, Percutaneous Approach (ICD-10-PCS; 2017-12-02)
PROC: 0W9G3ZZ Drainage of Peritoneal Cavity, Percutaneous Approach (ICD-10-PCS; 2017-12-06)
PROC: 0W9G3ZX Drainage of Peritoneal Cavity, Percutaneous Approach, Diagnostic (ICD-10-PCS; 2017-12-06)
PROC: 3E0G76Z Introduction of Nutritional Substance into Upper GI, Via Natural or Artificial Opening (ICD-10-PCS; 2017-12-22)
PROC: 0DH64UZ Insertion of Feeding Device into Stomach, Percutaneous Endoscopic Approach (ICD-10-PCS; 2017-12-22)
PROC: 5A1945Z Respiratory Ventilation, 24-96 Consecutive Hours (ICD-10-PCS; 2017-12-22)
PROC: 0BH18EZ Insertion of Endotracheal Airway into Trachea, Via Natural or Artificial Opening Endoscopic (ICD-10-PCS; 2017-12-22)
PROC: 0B9J8ZX Drainage of Left Lower Lung Lobe, Via Natural or Artificial Opening Endoscopic, Diagnostic (ICD-10-PCS; 2017-12-22)
DX: C18.4 Malignant neoplasm of transverse colon (principal); K91.89 Other postprocedural complications and disorders of digestive system; K65.0 Generalized (acute) peritonitis; B37.89 Other sites of candidiasis; K55.049 Acute infarction of large intestine, extent unspecified; K63.1 Perforation of intestine (nontraumatic); Y83.2 Surgical operation with anastomosis, bypass or graft as the cause of abnormal reaction of the patient, or of later complication, without mention of misadventure at the time of the procedure; J95.821 Acute postprocedural respiratory failure; J18.9 Pneumonia, unspecified organism; G93.41 Metabolic encephalopathy; J90 Pleural effusion, not elsewhere classified; N17.9 Acute kidney failure, unspecified; R13.10 Dysphagia, unspecified; I95.9 Hypotension, unspecified; J98.09 Other diseases of bronchus, not elsewhere classified; R18.8 Other ascites; B37.0 Candidal stomatitis; E86.0 Dehydration; E87.2 Acidosis; E87.70 Fluid overload, unspecified; E87.6 Hypokalemia; E68 Sequelae of hyperalimentation; B37.49 Other urogenital candidiasis; D12.4 Benign neoplasm of descending colon; E11.9 Type 2 diabetes mellitus without complications; D64.9 Anemia, unspecified; F41.1 Generalized anxiety disorder; I10 Essential (primary) hypertension; I87.8 Other specified disorders of veins; E03.9 Hypothyroidism, unspecified; Z96.659 Presence of unspecified artificial knee joint; E66.9 Obesity, unspecified; Z68.34 Body mass index [BMI] 34.0-34.9, adult; Z79.84 Long term (current) use of oral hypoglycemic drugs; Z79.82 Long term (current) use of aspirin; Z86.010 Personal history of colon polyps
CPT/HCPCS: 36415; 36600; 49083; 70450; 71045; 71260; 74018; 74177; 76705; 80048; 80048 91; 80053; 80076; 80202; 81003; 81050; 82248; 82803; 82945; 82948; 83605; 83615 91; 83735; 83880; 83986 90; 84100; 84134; 84145 90; 84157; 84478; 84540; 84630 90; 85014; 85018; 85025; 85025 91; 85027; 85610; 85730; 86850; 86900; 86901; 86920; 87070; 87086; 87106; 87186 90; 87205; 87641; 88108; 88305; 88307; 88309; 88342 TC; 89051; 92523 GN; 92526 GN; 92610 GN; 93005; 94002; 94003; 94640; 94640 76; 94760; 94799; 97530 GO; 97530 GP; 99202; C1751; C1753; J0131; J0330; J0690; J0692; J1100; J1170; J1200; J1335; J1450; J1630; J1650; J1815; J1885; J1940; J1956; J2060; J2248; J2250; J2270; J2405; J2704; J2710; J3010; J3370; J3475; J3480; J7030; J7040; J7042; J7050; J7070; J7120; J7643; P9016; P9045; P9047; S0020; S0028; S0030

== ENCOUNTER → 2018-01-18 | Outpatient (CLI) | payer OTHER ==
[~2018-01-18] MED LIST changes: +ALPRAZOLAM0.25 M2 GT
== END ==
LOC: AMB 12:00
DX: Z48.815 Encounter for surgical aftercare following surgery on the digestive system (principal); Z90.49 Acquired absence of other specified parts of digestive tract; C18.9 Malignant neoplasm of colon, unspecified; Z88.0 Allergy status to penicillin; Z88.5 Allergy status to narcotic agent; Z88.6 Allergy status to analgesic agent; Z88.1 Allergy status to other antibiotic agents; Z88.8 Allergy status to other drugs, medicaments and biological substances
CPT/HCPCS: 99212